=== PATIENT | female | born 1990 | race Caucasian/White ===

== ENCOUNTER → 2021-11-12 | Day surgery (SDC) | payer OTHER ==
[~2021-11-12] VITALS: Ht 172.7 cm; Wt 78.0 kg
[~2021-11-12] MED LIST: IV RINGERS,LACTATED 1000ML 1,000 ML IV SCH; LEVO200T PO; LEXAPRO20 MG PO; LIDOCAINE 2% PF 5 ML VIAL. ONE; OMEP20CA16 PO; PROPOFOL 10 MG/ML (20ML) VIAL. IV ONE
[2021-11-12 12:15] VITALS: BP 121/70
--- NOTE | 2021-11-12 13:02 | PDOC1 ---
History and Physical Date of Admission Date of Admission DATE: 11/12/21 TIME: 12:53 Identification/Chief Complaint Chief Complaint Dyspepsia/melena Source Source: Chart review, Patient History of Present Illness History of Present Illness 31 y/o female with epigastric pain and abnormal stools historically c/w melena. Supposedly on PPI. H/o "ulcer"; recalls nothing re: H.pylori. Father with stomach cancer. Past Medical History Cardiovascular: Other (Tetrology of Fallot, corrected) CENTRAL NERVOUS SYSTEM: CVA Heme/Onc: Cancer (ovarian) Hepatobiliary: Other (NAFLD) Endocrine: Hypothyroidism Past Surgical History Past Surgical History: Hysterectomy, Other (Correction of Tetrology of Fallot) Family History Family History: Cancer (breast, gastric), Hypertension Social History Smoke: No ALCOHOL: none Drugs: None Current Medications Current Medications Current Medications Ringer's Solution 1,000 ml @ 50 mls/hr Q20H IV Last administered on 11/12/21at 12:27; Start 11/12/21 at 07:00; Stop 11/12/21 at 18:59 Active Scripts Active Reported Omeprazole 20 Mg Capsule.dr 1 Cap PO DAILY Lexapro (Escitalopram Oxalate) 20 Mg Tablet 1 Tab PO DAILY Synthroid (Levothyroxine Sodium) 200 Mcg Tablet 1 Tab PO DAILY Allergies Allergies: Coded Allergies: aspirin (Verified Allergy, Intermediate, Unknown, 11/12/21) gi bleed ROS Review of System Otherwise negative. Physical Exam General: Alert, Oriented X3, Cooperative, No acute distress Lungs: Clear to auscultation Heart: S1S2, RRR, no gallops, no murmurs Abdomen: Normal bowel sounds, Soft, No hepatosplenomegaly, No masses, Other (mild epigastric tenderness) Rectal Exam: not examined Extremities: No cyanosis, No edema Skin: No significant lesion Neuro: Normal speech, Strength at 5/5 X4 ext, Normal tone, Sensation intact, Cranial nerves 3-12 NL, Reflexes 2+ Psych/Mental Status: Mental status NL, Mood NL Vitals Vitals Vital Signs Date Time Temp Pulse Resp B/P (MAP) Pulse Ox O2 Delivery O2 Flow Rate FiO2 11/12/21 12:15 98 70 18 99 98.0 Labs Labs Laboratory Tests Test 11/12/21 12:17 Bedside Urine HCG, Qualitative Hcg negative (Negative) Laboratory Tests Test 11/12/21 12:17 Bedside Urine HCG, Qualitative Hcg negative (Negative) VTE Prophylaxis Ordered VTE Prophylaxis Devices: No VTE Pharmacological Prophylaxi: No Assessment/Plan Assessment/Plan IMP: Dyspepsia/melena. PLAN: EGD. SANDRA HERNANDEZ MD Nov 12, 2021 13:02
--- NOTE | 2021-11-12 13:19 | PDOC4 ---
PROCEDURE Procedure EGD/biopsies Indication: Dyspepsia/melena Meds; per anesthesia Findings: E--High-grade reflux, partially-healed, at 35 cm. G--Small HH. Otherwise normal. Biopsies antrum and fundus. D--Normal to second portion. Hsakir. well. IMP: High-grade reflux. HH REC: Omeprazole 40mg BID. Await biopsies. Resume other meds, diet. F/u in 2 weeks. SANDRA HERNANDEZ MD Nov 12, 2021 13:19
[2021-11-12 13:31] VITALS: BP 109/54
--- NOTE | 2021-11-13 17:09 | PATHOLOGY ---
[facility] Accession Number: [id number] . 01 Material submitted: . PART A: stomach - ANTRUM BIOPSY PART B: stomach - FUNDUS BIOPSY . 01 Clinical history: . ABDOMINAL PAIN EGD . 02 Diagnosis: A. Gastric biopsies, antrum: - Congestion and mild chronic inflammation. . B. Gastric biopsies, fundus: - Congestion and minimal chronic inflammation. . (JPM:mm; 11/13/2021) [facility] 11/13/2021 1206 Local . 02 Comment: Sections of the gastric antral biopsy reveal gastric antral/body transition mucosa showing congestion and very mild chronic inflammation. A properly-controlled immunoperoxidase stain for Helicobacter is negative for Helicobacter organisms. . Sections of the gastric fundus biopsy reveal gastric body mucosa showing congestion and minimal chronic inflammation. A properly-controlled immunoperoxidase stain for Helicobacter is negative for Helicobacter organisms. . Special stains performed: Immunoperoxidase stain for Helicobacter on A1 and B1 . (JPM:mml; 11/13/2021) . 02 Electronically signed: . Mark Joyce MD, Pathologist NPI- [id number] . 01 Gross description: . A. The specimen is received in formalin, labeled "Dockery, Kena, antrum BX". Received are 2 segments of pale matute tissue measuring 0.3 and 0.4 cm in maximum dimensions. The specimen is submitted entirely in cassette A1. . B. The specimen is received in formalin, labeled "Dockery, Kena, fundus BX". Received are 2 segments of pale matute tissue ranging in size from 0.2 cm to 0.4 cm in maximum dimensions. The specimen is submitted entirely in cassette B1.([facility]; 11/12/2021) [facility] 11/12/2021 1653 Local . 02 Pathologist provided ICD-10: K29.50 . 02 CPT . 386568, [id number], [id number] Specimen Comment: A courtesy copy of this report has been sent to [phone] Specimen Comment: Report sent to Performed at: [address] [facility], [place] [id number] MD Vick Kaufman MD Phone: [phone] Performed at: 02 [facility] [address] [place], [place] [id number] MD Mark Joyce MD Phone: [phone]
== END | disposition home or self-care (01) ==
LOC: ENDOS 11:57
PROVIDERS: ATTEND Internal Medicine Gastroenterology
DX: R13.10 Dysphagia, unspecified (principal); K92.1 Melena; R10.13 Epigastric pain; K29.50 Unspecified chronic gastritis without bleeding; K31.89 Other diseases of stomach and duodenum; K44.9 Diaphragmatic hernia without obstruction or gangrene; K21.00 Gastro-esophageal reflux disease with esophagitis, without bleeding; E03.9 Hypothyroidism, unspecified; I10 Essential (primary) hypertension; E78.00 Pure hypercholesterolemia, unspecified; F41.9 Anxiety disorder, unspecified; F32.9 Major depressive disorder, single episode, unspecified; Z90.710 Acquired absence of both cervix and uterus; Z98.890 Other specified postprocedural states; Z82.49 Family history of ischemic heart disease and other diseases of the circulatory system
CPT/HCPCS: 43239; 81025; 88305; 88342; J2704